=== PATIENT | female | born 1950 | race Asian ===

== ENCOUNTER → 2017-11-18 | Outpatient (CLI) | payer OTHER ==
[~2017-11-18] MED LIST: ADULT LOW DOSE81 MG PO; ATORVASTATIN CA40 MG PO; DIOVAN HCT 3201 EAC1 PO; FEXOFENADINE H180 MG PO; FISH OIL 1,2001 EAC4 PO; LANTUSSOLASTAR SUBQ; MULTIVITAMINS PO; NASONEX17 GM NASAL; NIASPAN ER 101000 M1; NOVOLOG100 UNIT/1 SUBQ; OPTIVAR6 ML OPHTHALMIC; QVAR8.7 G1 INH; VITAMIN E400 UNIT PO
== END ==
LOC: RAD 00:28
DX: Z12.31 Encounter for screening mammogram for malignant neoplasm of breast (principal)

== ENCOUNTER → 2018-11-21 | Outpatient (CLI) | payer OTHER | LOC: RAD 02:22 | DX: Z12.31 Encounter for screening mammogram for malignant neoplasm of breast (principal) ==

== ENCOUNTER → 2018-11-25 | Outpatient (CLI) | payer OTHER | LOC: RAD 12:38 | DX: R92.2 Inconclusive mammogram (principal) ==

== ENCOUNTER → 2019-01-09 | Outpatient (CLI) | payer OTHER | LOC: CAT 12:33 | DX: J32.0 Chronic maxillary sinusitis (principal); H04.223 Epiphora due to insufficient drainage, bilateral; Z98.890 Other specified postprocedural states ==

== ENCOUNTER 2019-03-20 05:34 | Day surgery (SDC) | payer OTHER ==
[~2019-03-20] VITALS: Ht 160 cm; Wt 60.3 kg
--- NOTE | ~2019-03-20 | H ---
[facility] [place] [address] [address] HISTORY AND PHYSICAL Name: NIK NAGY Room #: DEP [facility] M..#: [id number] Admission: 03/20/19 ������������������ Attend Phys: Renzo Riley MD Discharge: 03/20/19 ������������������ Date of : 48 Report #: [id number] THIS REPORT FOR: //name// CC: Yaneth Riley DATE OF SERVICE: 03/20/2019 Her procedure is scheduled for 03/20/2019. HISTORY OF PRESENT ILLNESS: The patient has a lot of problems with tearing in her eyes. She says they constantly water. She has been treated with eyedrops. She underwent sinus surgery in 2006 for chronic sinusitis and since then she has been able to breathe through her nose and able to sleep and she has been happy with her nasal airway. She had a CT scan of her sinuses because of the tearing problem and it shows very significant ethmoid sinus mucous membrane thickening with only very small openings to the maxillary sinuses and poor openings into the ethmoid sinuses. PAST MEDICAL HISTORY: Otherwise, significant for diabetes and high blood pressure. MEDICATIONS: Include Diovan, Lipitor, Lantus, Januvia, Flonase. ALLERGIES: She has no known drug allergies. PHYSICAL EXAMINATION: She had a reasonable nasal airway. Her oropharynx and oral cavity were clear. Nasal endoscopy shows very small openings into the maxillary sinuses with intact uncinate processes, partial openings into the ethmoid sinuses. IMPRESSION: Chronic maxillary and ethmoid sinusitis contributing to tearing problem. PLAN: Revision endoscopic bilateral maxillary antrostomies and complete ethmoidectomies. ��������������������������������������������� ���������������������������������������� By: ��������������������������������������������� 1500 1522 Renzo Riley MD /nt
--- NOTE | ~2019-03-20 | O ---
[facility] [address] [place] [address] OPERATIVE REPORT Name: NIK NAGY Room #: 150-6 [facility] M.R.#: [id number] Admission: 03/20/19 ������������������ Attend Phys: Renzo Riley MD Discharge: ������������������ Date of : 48 Report #: [id number] THIS REPORT FOR: //name// CC: Yaneth Riley DATE OF SERVICE: 03/20/2019 PREOPERATIVE DIAGNOSIS: Chronic maxillary and ethmoid sinusitis. POSTOPERATIVE DIAGNOSIS: Chronic maxillary and ethmoid sinusitis. OPERATIVE PROCEDURE: Revision bilateral maxillary antrostomies with removal of tissue, bilateral complete ethmoidectomies with image-guided surgery. ANESTHESIA : General by laryngeal mask. DESCRIPTION OF PROCEDURE: The patient was taken to the operating room and placed in a supine position. General anesthesia was induced by laryngeal mask. Once adequate general anesthesia was obtained, local nasal anesthesia was induced by submucoperiosteal injection of 1% lidocaine with 1:100,000 epinephrine and topical application of cocaine solution. The patient was then prepared and draped in a sterile manner. The patient was also calibrated to the [employer] image guidance system for image guidance surgery throughout the procedure. The nasal endoscope was used to visualize the left nasal cavity. There was a scar band between the middle turbinate and lateral wall of the nose. The scar band was taken down with the microdebrider. There was no opening into the maxillary sinus. The soft fontanelle was palpated. It was removed using the microdebrider, and it was followed up towards the natural opening of the maxillary sinus. This was filled with polypoid tissue, and this was removed with a back biting forceps and a curved blade on the microdebrider. Inside the sinus itself was thick purulent mucus, and this was suctioned and removed. There was a partial ethmoidectomy, but this was enlarged by removing the basal lamella and then opening up into the posterior ethmoid air cells. There was a large amount of purulent mucus posteriorly. This was suctioned and removed. I followed the ethmoid air cells up towards the fovea ethmoidalis and then cleaned up into the frontal duct as well and then cleaned at the root of the uncinate process anteriorly making wide openings into the ethmoid sinuses. FloSeal was placed into the ethmoid cavity and middle meatus for hemostasis. The exact same procedure was performed on the right side. The patient tolerated the procedure well. Blood loss probably 25 mL. The patient was then awoken and taken to the recovery room in stable condition for postoperative monitoring. ��������������������������������������������� ���������������������������������������� By: ��������������������������������������������� 1016 [id number] Renzo Riley MD /paul
[~2019-03-20 05:34] MED LIST changes: +ALLEGRA ALLERGY60 MG PO; +AZELASTINE HCL6 ML OPHTHALMIC; +FLONASE 0.05%50 MCG INH; +JANUVIA100 MG PO; +NOLVADEX20 MG PO; +OPCON-A EYE DRO15 M1 OPHTHALMIC
[2019-03-20 08:11] LABS: CALCIUM 8.7 mg/dL (8.5-10.1); POTASSIUM 3.4 mmol/L (3.5-5.1)
[2019-03-20 08:33] VITALS: BP 149/69
--- NOTE | 2019-03-20 09:55 | EKG ---
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: leslye : 1950 Requested By: Renzo Riley Order Number: [id number] MD: Enrico Caballero Measurements Intervals Crane Rate: 77 P: 66 MD: 146 QRS: 75 QRSD: 96 T: 56 QT: 418 QTc: 474 Interpretive Statements Sinus rhythm Normal tracing Compared to ECG 02/17/2007 11:48:10 No significant changes Electronically Signed On 03-20-2019 9:55:37 CDT by Enrico Caballero [email or web address] ��������������������������������������������� <ELECTRONICALLY SIGNED> ���������������������������������������� By: Enrico Caballero MD, [facility] ��������������������������������������������� 03/20/19 [id number] Enrico Caballero MD, FACC /EPI
[2019-03-20 10:41] VITALS: BP 149/69
== END 2019-03-20 11:30 | disposition home or self-care (01) ==
LOC: TBA 05:34 → OR 05:34
PROVIDERS: Otolaryngology
DX: J32.0 Chronic maxillary sinusitis (principal); J32.2 Chronic ethmoidal sinusitis; I10 Essential (primary) hypertension; E11.9 Type 2 diabetes mellitus without complications; E78.00 Pure hypercholesterolemia, unspecified; E78.5 Hyperlipidemia, unspecified; J45.909 Unspecified asthma, uncomplicated; Z98.890 Other specified postprocedural states; Z79.4 Long term (current) use of insulin; Z79.899 Other long term (current) drug therapy; Z79.82 Long term (current) use of aspirin
CPT/HCPCS: 50010; 50101; 50286; 50386; 50398; 50573; 51751; 52290; 52291; 62110; 62900; 64037; 70005

== ENCOUNTER → 2019-11-29 | Outpatient (CLI) | payer OTHER | LOC: RAD 12:28 → BC 13:53 → RAD 13:55 | DX: Z12.31 Encounter for screening mammogram for malignant neoplasm of breast (principal) ==

== ENCOUNTER → 2020-12-02 | Outpatient (CLI) | payer OTHER | LOC: BC 10:30 | PROVIDERS: ATTEND Internal Medicine Hematology & Oncology | DX: Z12.31 Encounter for screening mammogram for malignant neoplasm of breast (principal) ==

== ENCOUNTER → 2020-12-10 | Outpatient (CLI) | payer OTHER ==
--- NOTE | 2020-12-12 10:08 | PATH ---
[facility] [address] [place] [address] PATHOLOGY RPT PROCEDURE Name: MATTHEW NAGY Room #: REG KARINA Waddell.#: [id number] Admission: 12/10/20 Date of : 48 Discharge: Report #: [id number] Path Case #: [id number] [facility] Accession Number: [id number] . 01 Material submitted: . breast - RIGHT BREAST MASS. Modifiers: right . 01 Clinical history: . 1200 6 CM . 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 - No definite invasion identified, see comment. (IUV:pit 12/11/2020) QTP 12/11/2020 1438 Local . 02 Comment: Properly controlled immunohistochemical stains are performed on block A3. Intact myoepithelial cell lining is identified on both p63 and smooth muscle myosin heavy chain immunohistochemical stains. . [employer] slides of this case were co-reviewed by Dr. Viky Scruggs who concurs with my diagnosis. Findings of this case are telephoned to Lindsay Chata in our breast center at approximately 1:30 pm on 12/11/2020. . ER and MD breast markers are ordered on block A1. The results of these will be reported in an addendum to follow. (IUV:pit 12/11/2020) . 02 Electronically signed: . Thelma Sheehan MD, Pathologist NPI- [id number] . 01 Gross description: . The specimen is received in formalin, labeled "Matthew Nagy, right breast". The specimen is additionally labeled on the requisition as, "right breast 12:00 6 cm". Received are four needle cores of fibrofatty tissue measuring 1.5 x 0.6 x 0.2 cm in aggregate dimensions. The specimen is submitted entirely in cassettes A1 through A3. The cold ischemic time is less than 1 minute. The total formalin fixation time is 8 hours and 40 minutes. (CAA; 12/10/2020) QAC/QAC 12/11/2020 1434 Local . 02 Pathologist provided ICD-10: [address] [address] PATHOLOGY RPT PROCEDURE Name: MATTHEW NAGY Room #: REG CLCailin Johnson#: [id number] Admission: 12/10/20 Date of : 48 Discharge: Report #: [id number] Path Case #: [id number] . 02 CPT . 284732, C39625, [id number] Specimen Comment: A courtesy copy of this report has been sent to [phone], [phone] Specimen Comment: [id number] Specimen Comment: Report sent to DR CERNA / DR NAVARRO Performed at: [address] [facility], [place] [id number] MD Kamaljit Velázquez MD Phone: [phone] Performed at: [address] [facility] [id number] MD Thelma Sheehan MD Phone: [phone]
== END | disposition home or self-care (01) ==
LOC: BC 12:10
PROVIDERS: ATTEND Internal Medicine Hematology & Oncology
DX: N63.11 Unspecified lump in the right breast, upper outer quadrant (principal); R92.8 Other abnormal and inconclusive findings on diagnostic imaging of breast; D05.11 Intraductal carcinoma in situ of right breast; Z79.899 Other long term (current) drug therapy

== ENCOUNTER → 2020-12-30 | Outpatient (CLI) | payer OTHER | LOC: RAD 13:40 | PROVIDERS: ATTEND Nurse Practitioner | DX: J84.10 Pulmonary fibrosis, unspecified (principal); M41.84 Other forms of scoliosis, thoracic region ==

== ENCOUNTER → 2021-09-23 | Outpatient (CLI) | payer OTHER | LOC: CAT 12:12 | PROVIDERS: ATTEND Nurse Practitioner | DX: R63.4 Abnormal weight loss (principal); R68.81 Early satiety; R53.1 Weakness; Z85.3 Personal history of malignant neoplasm of breast ==